=== PATIENT | male | born 1980 | race Caucasian/White ===

== ENCOUNTER 2025-03-22 07:43 | Day surgery (SDC) | payer OTHER ==
[~2025-03-22] VITALS: Ht 175.3 cm; Wt 98.7 kg
[~2025-03-22 07:43] MED LIST: LEXA1TAB PO; NAPR-885 PO
[2025-03-22] MEDS: LR 1,000 ML IV SCH (08:00)
[2025-03-22] MEDS ORDERED: LIDOCAINE 2% 100 MG/5 ML SDV (FOR ANES.) As Ordered ONE (08:12)
[2025-03-22] MEDS ORDERED: dexAMETHasone 4 MG/ML 1 ML VIAL As Ordered ONE (08:14)
[2025-03-22] MEDS ORDERED: MIDAZOLAM INJ 2 MG/2 ML VIAL As Ordered ONE (08:17)
[2025-03-22] MEDS ORDERED: ACETAMINOPHEN 1000MG/100ML IV BAG As Ordered ONE (08:19)
[2025-03-22] MEDS: ceFAZolin SOD 2 GM IV ONCE IV ONE (09:12)
[2025-03-22] MEDS: TRANEXAMIC ACID 100 MG/ML 10ML VIAL As Ordered ONE (09:18)
[2025-03-22] MEDS ORDERED: KETOROLAC 30 MG/ML 1 ML VIAL As Ordered ONE (09:24)
[2025-03-22] MEDS ORDERED: ONDANSETRON 4MG/2ML VIAL As Ordered ONE (09:24)
[2025-03-22] MEDS: EPINEPHrine 1 MG/ML INJ 30 ML MD-VIAL As Ordered ONE (09:47)
[2025-03-22] MEDS ORDERED: HYDROMORPHONE HCL 0.5 MG/0.5 ML SYRINGE IV PRN (10:00)
[2025-03-22] MEDS ORDERED: LR 1,000 ML IV SCH (10:00)
[2025-03-22 10:51] VITALS: BP 121/73; TEMP 97.2; O2SAT 98
== END 2025-03-22 11:10 | disposition home or self-care (01) ==
LOC: M SDC 07:43
PROVIDERS: ATTEND Orthopaedic Surgery
DX: M23.221 Derangement of posterior horn of medial meniscus due to old tear or injury, right knee (principal); M17.11 Unilateral primary osteoarthritis, right knee; M22.41 Chondromalacia patellae, right knee; Z88.0 Allergy status to penicillin; Z79.899 Other long term (current) drug therapy
CPT/HCPCS: 29881; 93005; J0131; J0165; J0665; J0688; J1100; J1885; J2250; J2405; J3010